=== PATIENT | male | born 1965 | race Two or more races ===

== ENCOUNTER 2020-12-15 22:40 | Emergency (ER) | payer OTHER ==
[~2020-12-15] VITALS: Ht 180.3 cm; Wt 99.8 kg
[2020-12-15 22:40] VITALS: BP 128/83
[2020-12-16 01:28] LABS: Basophils # (auto) 0.1 10 ^3/uL (0-0.2); Basophils % (auto) 1.9 % (0.0-2.0); Eosinophils # (auto) 0.2 10 ^3/uL (0-0.8); Eosinophils % (auto) 2.5 % (0.0-7.0); Hematocrit 45.4 % (41.0-53.0); Hemoglobin 15.9 g/dL (13.5-17.5); Lymphocytes # (auto) 1.7 10 ^3/uL (0.4-5.4); Mean Corpuscular Hemoglobin 31.3 pg (28.0-32.0); Mean Corpuscular Volume 89.7 fL (80.0-100.0); Monocytes # (auto) 0.3 10 ^3/uL (0-1.3); Monocytes % (auto) 4.6 % (0.0-12.0); Neutrophils # (auto) 5.1 10 ^3/uL (1.6-8.6); Nucleated Red Blood Cells % 0.1 %; Platelet Count (auto) 152 10^3/uL (140-450); Red Blood Cells 5.07 10^6/uL (4.5-5.90); Red Cell Distribution Width 13.1 % (11.8-14.3); White Blood Cell 7.5 10^3/uL (4.4-10.8)
[2020-12-16 01:51] LABS: Albumin 3.9 g/dL (3.4-5.0); Anion Gap 9 (5-15); BUN/Creatinine Ratio 19.7; Blood Urea Nitrogen 13 mg/dL (7-18); Calcium 8.1 mg/dL (8.5-10.1); Carbon Dioxide 23 mmol/L (21-32); Chloride 109 mmol/L (98-107); GFR African American 161 mL/min; GFR Non-African American 133 mL/min; Glucose 134 mg/dL (74-106); Magnesium 2.3 mg/dL (1.6-2.6); Potassium 3.8 mmol/L (3.5-5.1); Sodium 141 mmol/L (136-145)
[2020-12-16 02:00] LABS: Alanine Aminotransferase 37 U/L (16-61); Alkaline Phosphatase 82 U/L (45-117); Aspartate Aminotransferase 19 U/L (15-37); Bilirubin, Total 0.6 mg/dL (0.2-1.0); Phosphorus 3.2 mg/dL (2.5-4.90); Total Protein 7.1 g/dL (6.4-8.2)
[2020-12-16 02:44] LABS: Urine WBC None Seen /hpf (0 - 3)
[2020-12-16] MEDS ORDERED: IOHEXOL 300 MG/ML 100ML BOTTLE IJ ONE (02:50)
[2020-12-16 03:24] LABS: Urine Bacteria NONE SEEN /hpf (None Seen); Urine Blood Negative /uL (Negative); Urine Hyaline Cast FEW /lpf (0 - 2); Urine Specific Gravity 1.004 (1.001-1.035)
[2020-12-16 04:40] LABS: Urine Bacteria NONE SEEN /hpf (None Seen); Urine Blood Negative /uL (Negative); Urine WBC <1 /hpf (0 - 3)
[2020-12-16 04:47] LABS: Urine Specific Gravity > 1.050 (1.001-1.035)
== END 2020-12-16 06:01 | disposition home or self-care (01) ==
LOC: EDBD 22:40 → ER 22:40
DX: N20.0 Calculus of kidney (principal); F17.210 Nicotine dependence, cigarettes, uncomplicated
CPT/HCPCS: 36415; 71045; 74177; 80053; 81001; 83605; 83690; 83735; 83880; 84100; 84484; 85025; 93005; 99285; Q9967

== ENCOUNTER 2024-09-23 10:24 | Inpatient (IN) | payer MEDICAID, OTHER ==
[~2024-09-23] VITALS: Ht 180.3 cm; Wt 100.1 kg
[2024-09-23 10:56] LABS: Urine Bacteria None Seen /hpf (None Seen); Urine WBC None Seen /hpf (0 - 3)
[2024-09-23 11:15] LABS: Basophils # (auto) 0.1 10 ^3/uL (0-0.2); Basophils % (auto) 0.5 % (0.0-2.0); Eosinophils # (auto) 0.2 10 ^3/uL (0-0.8); Eosinophils % (auto) 1.6 % (0.0-7.0); Hematocrit 44.7 % (41.0-53.0); Hemoglobin 15.7 g/dL (13.5-17.5); Lymphocytes # (auto) 1.6 10 ^3/uL (0.4-5.4); Lymphocytes % (auto) 14.7 % (10.0-50.0); Mean Corpuscular Hemoglobin 31.1 pg (28.0-32.0); Mean Corpuscular Hgb Conc. 35.1 g/dL (32.0-36.0); Mean Corpuscular Volume 88.6 fL (80.0-100.0); Monocytes # (auto) 0.9 10 ^3/uL (0-1.3); Monocytes % (auto) 8.3 % (0.0-12.0); Neutrophils # (auto) 8.4 10 ^3/uL (1.6-8.6); Neutrophils % (auto) 74.9 % (37.0-80.0); Nucleated Red Blood Cells % 0.2 %; Platelet Count (auto) 150 10^3/uL (140-450); Red Blood Cells 5.05 10^6/uL (4.5-5.90); Red Cell Distribution Width 13.7 % (11.8-14.3); White Blood Cell 11.2 10^3/uL (4.4-10.8)
[2024-09-23 11:37] LABS: Alanine Aminotransferase 19 U/L (7-40); Albumin 4.4 g/dL (3.2-4.8); Alkaline Phosphatase 96 U/L (46-116); Anion Gap 6 (5-15); Aspartate Aminotransferase 12 U/L (13-40); BUN/Creatinine Ratio 8.3 (10.0-20.0); Bilirubin, Total 1.6 mg/dL (0.2-1.0); Blood Urea Nitrogen 9 mg/dL (9-23); Calcium 9.7 mg/dL (8.7-10.4); Carbon Dioxide 27 mmol/L (20-31); Chloride 107 mmol/L (98-107); Glucose 93 mg/dL (74-106); Potassium 4.6 mmol/L (3.5-5.1); Sodium 140 mmol/L (136-145); Total Protein 6.9 g/dL (5.7-8.2)
[2024-09-23 11:50] LABS: Urine Blood 2+ /uL (Negative); Urine Clarity Clear (Clear); Urine Color Colorless (Yellow); Urine Protein, UAD Negative (Negative); Urine Specific Gravity 1.004 (1.001-1.035); Urine Urobilinogen Normal (Negative); Urine pH 6.5 (5.0-9.0)
[2024-09-23] MEDS: IOHEXOL 300 MG/ML 100ML BOTTLE IJ ONE (13:00)
[2024-09-23] MEDS ORDERED: MANNITOL FTV 25% 12.5 GM/50 ML 50 ML IV ONE (14:15)
[2024-09-23] MEDS ORDERED: KETOROLAC TROMETH 30 MG/ML 1ML VIAL IV PRN (14:45)
[2024-09-23] MEDS ORDERED: HYDROcodone-ACET 5/325MG TAB PO PRN (14:45)
[2024-09-23] MEDS ORDERED: HYDR12.55 PO (14:45)
[2024-09-23] MEDS ORDERED: TAMS0.4C39 PO (14:45)
[2024-09-23] MEDS ORDERED: ONDANSETRON HCL 4 MG/2 ML VIAL IV PRN (14:45)
[2024-09-23 16:52] VITALS: BP 124/72; PULSE 79; RESP 18; TEMP 98.4; O2SAT 98
[2024-09-23 16:53] VITALS: PULSE 79; RESP 16; O2SAT 98
[2024-09-23] MEDS: HYDROcodone-ACET 5/325MG TAB PO ONE (17:07)
[2024-09-23] MEDS: SODIUM CHLORIDE 0.9% 2,000 ML IV ONE (17:07)
[2024-09-23] MEDS: TAMSULOSIN HYDROCHLORIDE 0.4 MG CAP PO ONE (17:07)
[2024-09-23 19:25] VITALS: RESP 16; O2SAT 98
[2024-09-23] MEDS: MANNITOL FTV 25% 12.5 GM/50 ML 50 ML IV ONE (21:40)
[2024-09-23 23:50] VITALS: BP 128/74; PULSE 74; RESP 19; TEMP 97.8; O2SAT 97
[2024-09-23 23:55] VITALS: BP 128/74; PULSE 74; RESP 18; TEMP 97.8; O2SAT 97
[2024-09-24] VITALS (7 sets, daily range): BP systolic 112–142; BP diastolic 69–79; PULSE 56–97; RESP 15–20; TEMP 97.5–98.3; O2SAT 70–98
[2024-09-24 06:48] LABS: Basophils # (auto) 0.1 10 ^3/uL (0-0.2); Basophils % (auto) 0.8 % (0.0-2.0); Eosinophils # (auto) 0.2 10 ^3/uL (0-0.8); Eosinophils % (auto) 2.9 % (0.0-7.0); Hematocrit 40.2 % (41.0-53.0); Hemoglobin 14.3 g/dL (13.5-17.5); Lymphocytes # (auto) 1.6 10 ^3/uL (0.4-5.4); Lymphocytes % (auto) 22.8 % (10.0-50.0); Mean Corpuscular Hemoglobin 31.3 pg (28.0-32.0); Mean Corpuscular Hgb Conc. 35.5 g/dL (32.0-36.0); Mean Corpuscular Volume 88.1 fL (80.0-100.0); Monocytes # (auto) 0.5 10 ^3/uL (0-1.3); Monocytes % (auto) 7.2 % (0.0-12.0); Neutrophils # (auto) 4.7 10 ^3/uL (1.6-8.6); Neutrophils % (auto) 66.3 % (37.0-80.0); Platelet Count (auto) 140 10^3/uL (140-450); Red Blood Cells 4.56 10^6/uL (4.5-5.90); Red Cell Distribution Width 13.4 % (11.8-14.3); White Blood Cell 7.1 10^3/uL (4.4-10.8)
[2024-09-24 07:07] LABS: Anion Gap 6 (5-15); Carbon Dioxide 26 mmol/L (20-31); Chloride 111 mmol/L (98-107); Potassium 4.2 mmol/L (3.5-5.1); Sodium 143 mmol/L (136-145)
[2024-09-24 07:08] LABS: Calcium 9.2 mg/dL (8.7-10.4)
[2024-09-24 07:13] LABS: BUN/Creatinine Ratio 8.9 (10.0-20.0); Blood Urea Nitrogen 8 mg/dL (9-23); Glucose 106 mg/dL (74-106)
[2024-09-24] MEDS: TAMSULOSIN HYDROCHLORIDE 0.4 MG CAP PO SCH (10:49)
[2024-09-24] MEDS: hydroCHLOROthiazide 25 MG TAB PO SCH (10:49)
[2024-09-24] MEDS: MANNITOL FTV 25% 12.5 GM/50 ML 50 ML IV ONE (16:26)
[2024-09-25 01:00] VITALS: BP 121/76; PULSE 67; RESP 17; TEMP 98.5; O2SAT 95
[2024-09-25 05:00] VITALS: BP 144/75; PULSE 77; RESP 19; TEMP 97.4; O2SAT 96
[2024-09-25 08:28] VITALS: RESP 18; O2SAT 98
[2024-09-25 09:00] VITALS: BP 133/75; PULSE 70; RESP 18; TEMP 98.2; O2SAT 97
[2024-09-25] MEDS ORDERED: IBU600T PO (11:08)
[2024-09-25] MEDS ORDERED: TAMS0.4C39 PO (11:08)
[2024-09-25 12:10] VITALS: BP 133/75; TEMP 36.8
[2024-09-25 13:00] VITALS: BP 111/61; PULSE 88; RESP 18; TEMP 97.4; O2SAT 93
== END 2024-09-25 12:30 | disposition home or self-care (01) | DRG 465 ==
LOC: ER 10:24 → OVERFLOW 14:41 → CENTRAL 23:50
PROVIDERS: ADMIT Registered Nurse General Practice; ATTEND Student in an Organized Health Care Education/Training Program
DX: N20.1 Calculus of ureter (principal); F17.210 Nicotine dependence, cigarettes, uncomplicated; N21.1 Calculus in urethra; N20.0 Calculus of kidney; I10 Essential (primary) hypertension; K59.00 Constipation, unspecified; R13.10 Dysphagia, unspecified; Z85.038 Personal history of other malignant neoplasm of large intestine; Z79.899 Other long term (current) drug therapy
CPT/HCPCS: 36415; 74018; 74177; 76775; 80048; 80053; 81001; 85025; 96365; G0378

== ENCOUNTER 2024-10-20 09:31 | Inpatient (IN) | payer MEDICAID ==
[~2024-10-20] VITALS: Ht 180.3 cm; Wt 98.3 kg
[~2024-10-20 09:31] MED LIST: HYDR12.55 PO; IBU600T PO; TAMS0.4C39 PO
[2024-10-20] MEDS ORDERED: ONDANSETRON HCL 4 MG/2 ML VIAL IV PRN ×2 (10:30→13:15)
[2024-10-20] MEDS: SODIUM CHLORIDE 0.9% 500 ML IV ONE (10:30)
[2024-10-20 10:39] LABS: Urine Bacteria None Seen /hpf (None Seen)
--- NOTE | 2024-10-20 10:39 | ED.PDOC ---
General HPI Comments 59-year-old male patient with past medical history of nephrolithiasis, hypertension presented with chief complaint of nausea, vomiting, diarrhea. He was recently here in the hospital one month ago and was diagnosed with nephrolithiasis, was given IV fluids and discharged with tamsulosin. During this visit, patient mentioned that he started having vomiting at 2100 hours in the morning, had three episodes in the night, which did not contain any blood, yellowish in color. He mentioned complaint of associated lower abdominal pain that started after having vomiting and associated diarrhea, 3-4 episodes in the night, nonbloody, yellowish in color. He also complaint of associated mild 1/10 chest pain which is bilateral, pressure-like, increased with deep inspiration. He mentioned improvement in his symptoms of vomiting, but still has nausea and diarrhea. Currently he is feeling weak and has mild headache. He denied any complaints of palpitations, shortness of breath, pedal edema, orthopnea, cough. Past medical history Nephrolithiasis, hypertension Past surgical history Colon cancer surgery done 1 and 1/2 years ago Family history Gallstones in mother Medication history Tamsulosin Ibuprofen Stopped hydrochlorothiazide recently Allergic history No known allergies Social history Quit smoking, alcohol three years ago, was taking occasionally before that Denied marijuana or any other drugs ROS As described above in the HPI Examination General Appearance: Alert, Oriented X3, Cooperative, No acute distress Respiratory: Clear to auscultation, Normal air movement Cardiovascular: Regular rate, Normal S1, Normal S2 Abdominal: Soft, no guarding, no rigidity, mild lower abdominal tenderness Extremities: No cyanosis, No edema, Normal pulses, No tenderness/swelling Skin: No rashes, No breakdown Neuro: Normal speech and tone Chief Complaint: Abdominal Pain Time Seen by MD: 10:11 Primary Care Provider: TERRY Allergies: Coded Allergies: NO KNOWN ALLERGIES (Unverified , 12/16/20) Home Meds Active Scripts Ibuprofen Micronized (MOTRIN TABLET) 600 Mg Tb, 600 MG PO TID PRN, #30 TAB *Black box warning-NSAIDS can increase risk of OH & hypertension, GI irritation, ulceration, bleed, perferation. Do not use post cardiac surgery. Use short duration/lowest effective dose. Prov:MECHE WOODARD MD 09/25/24 Tamsulosin Hcl (Tamsulosin Hcl) 0.4 Mg Cap, 0.4 MG PO DAILY for 30 Days, #30 CAP 1 Refill Prov:MECHE WOODARD MD 09/25/24 Reported Medications Hydrochlorothiazide (Hydrochlorothiazide) 12.5 Mg Tab, 12.5 MG PO DAILY 09/23/24 Mode of Arrival: Ambulatory Differential Diagnosis Kidney stone (Female): N/A Kidney stone (Male): Bowel obstruction, Cholelithiasis, Hepatitis, Cholangitis, Pancreatitis, Pyelonephritis, Urinary obstruction, Urolithiasis, Urinary tract infection X-Ray, Labs, Meds, VS Vital Signs Date Time Temp Pulse Resp B/P (MAP) Pulse Ox O2 Delivery O2 Flow Rate FiO2 10/20/24 09:51 99.0 98 18 123/74 (90) 96 Lab Test 10/20/24 11:56 10/20/24 11:01 10/20/24 09:48 Range/Units Troponin I High Sensitivity < 3 L < 3 L </=54 ng/L White Blood Count 10.9 H 4.4-10.8 10^3/uL Red Blood Count 5.38 4.5-5.90 10^6/uL Hemoglobin 16.8 13.5-17.5 g/dL Hematocrit 47.7 41.0-53.0 % Mean Corpuscular Volume 88.7 80.0-100.0 fL Mean Corpuscular Hemoglobin 31.3 28.0-32.0 pg Mean Corpuscular Hemoglobin Concent 35.3 32.0-36.0 g/dL Red Cell Distribution Width 13.4 11.8-14.3 % Platelet Count 141 140-450 10^3/uL Mean Platelet Volume 7.2 6.9-10.8 fL Neutrophils (%) (Auto) 88.3 H 37.0-80.0 % Lymphocytes (%) (Auto) 4.9 L 10.0-50.0 % Monocytes (%) (Auto) 6.4 0.0-12.0 % Eosinophils (%) (Auto) 0.1 0.0-7.0 % Basophils (%) (Auto) 0.3 0.0-2.0 % Neutrophils # (Auto) 9.6 H 1.6-8.6 10 ^3/uL Lymphocytes # (Auto) 0.5 0.4-5.4 10 ^3/uL Monocytes # (Auto) 0.7 0-1.3 10 ^3/uL Eosinophils # (Auto) 0 0-0.8 10 ^3/uL Basophils # (Auto) 0 0-0.2 10 ^3/uL Nucleated Red Blood Cells 0.1 % Sodium Level 143 136-145 mmol/L Potassium Level 4.5 3.5-5.1 mmol/L Chloride Level 107 98-107 mmol/L Carbon Dioxide Level 28 20-31 mmol/L Anion Gap 8 5-15 Blood Urea Nitrogen 13 9-23 mg/dL Creatinine 0.93 0.700-1.30 mg/dL Glomerular Filtration Rate Calc 94 >90 mL/min BUN/Creatinine Ratio 14.0 10.0-20.0 Serum Glucose 114 H 74-106 mg/dL Calcium Level 9.8 8.7-10.4 mg/dL Total Bilirubin 2.0 H 0.2-1.0 mg/dL Aspartate Amino Transferase (AST) 24 13-40 U/L Alanine Aminotransferase (ALT) 29 7-40 U/L Alkaline Phosphatase 94 46-116 U/L B-Type Natriuretic Peptide 10.89 0-100 pg/mL Total Protein 7.1 5.7-8.2 g/dL Albumin 4.8 3.2-4.8 g/dL Lipase 45 12-53 U/L Urine Color Yellow Yellow Urine Clarity Clear Clear Urine pH 5.5 5.0-9.0 Urine Specific [place] 1.019 1.001-1.035 Urine Protein Negative Negative Urine Ketones Negative Negative Urine Blood Trace H Negative /uL Urine Nitrite Negative Negative Urine Bilirubin Negative Negative Urine Urobilinogen Normal Negative mg/dL Urine Leukocyte Esterase Negative Negative /uL Urine RBC 8 0 - 3 /hpf Urine WBC 1 0 - 3 /hpf Urine Squamous Epithelial Cells None seen <5 /hpf Urine Bacteria None seen None Seen /hpf Urine Mucus Few None Seen Urine Glucose Normal Normal mg/dL Time of 1ST Reevaluation: 11:53 Reevaluation 1ST: Unchanged Patient Education/Counseling: Diagnosis, Treatment Family Education/Counseling: No Family Present Comments Patient presented with the HPI, nausea, vomiting, diarrhea, workup was initiated. CT abdomen pelvis without contrast revealed 5 mm calculus in the distal left ureter. There is left hydroureter mild left renal hydronephrosis. Patient was given IV fluids, IV ondansetron Patient has been observed in the ED adequate length of time to insure improvement/stability. patient was admitted to the medicine team for further evaluation and treatment of their presentation. Departure 1 Departure Time of Disposition: 11:53 Impression: Primary Impression: Left ureteral stone Additional Impressions: Hydroureter, left Hydronephrosis, left Disposition: 09 ADMITTED INPATIENT Admit to: Med Surg Condition: Guarded ROYAL PEREZ RESIDENT Oct 20, 2024 10:39
--- NOTE | 2024-10-20 10:56 | DVH ---
CHEST RADIOGRAPH Indication: chest pain Technique: Single frontal view of the chest was obtained Comparison: CHEST XRAY 1 VIEW on DOS: 12/15/20 FINDINGS: Lines and Tubes: None Lungs: No focal consolidation. Pleura: No effusion. No pneumothorax. Cardiomediastinal contours: Unremarkable Bones: No acute osseous abnormality. IMPRESSION: No acute cardiopulmonary disease.
[2024-10-20 11:03] LABS: Urine Blood TRACE /uL (Negative); Urine Clarity Clear (Clear); Urine Color Yellow (Yellow); Urine Mucus FEW (None Seen); Urine Protein, UAD Negative (Negative); Urine Specific Gravity 1.019 (1.001-1.035); Urine Urobilinogen Normal (Negative); Urine WBC 1 /hpf (0 - 3); Urine pH 5.5 (5.0-9.0)
--- NOTE | 2024-10-20 11:11 | DVH ---
CT ABDOMEN AND PELVIS WITHOUT CONTRAST CLINICAL HISTORY: Lower abd pain, history of renal stones TECHNIQUE: Multiple contiguous axial images of the abdomen and pelvis without intravenous contrast. The images were reformatted degenerate coronal and sagittal reconstructions. All CT scans at this medical facility are performed using dose modulation techniques as appropriate t o a performed exam including the following:Automated exposure control was utilized; adjustment of the MA and/or KV according to patient size; and use of iterative reconstruction technique. Radiation Dose Information: CT Dose: CTDI volume is 15 mGy. Dose-length product is 891 mGy*cm Comparison: CT CT AB PEL WITH IV CON ONLY on DOS: 09/23/24 FINDINGS: Evaluation of the abdomen and pelvis is limited without intravenous contrast. There is a 5 mm calculus in the distal left ureter. There is left hydroureter and mild left renal hy dronephrosis. There is no evidence of right renal calculus or hydronephrosis. There is no evidence o f a right ureteral calculus or hydroureter. There is a 2.1 cm calcified gallstone within the gallbladder. The liver, pancreas, adrenal glands, and spleen appear within normal limits. There is no gross evidence of abdominal lymphadenopathy. There is no free fluid or free air. There are postsurgical changes related to partial right hemicolectomy with anastomotic sutures in the transverse colon. The small and large bowel loops demonstrate normal caliber. There are scattered d iverticula in the colon without evidence of acute diverticulitis. The abdominal aorta and IVC appear within normal limits. There is mild prostatomegaly. The bladder appears within normal limits the degree of distention. Ther e is no evidence of a pelvic mass or lymphadenopathy. There is no free fluid collection. There is a s mall fat containing right inguinal hernia. Lung bases are clear. There is no acute osseous abnormality. IMPRESSION: 1. 5 mm calculus in the distal left ureter. There is left hydroureter mild left renal hydronephrosis . 2. Cholelithiasis. 3. Partial right hemicolectomy with anastomotic sutures in the transverse colon. The small and large bowel loops demonstrate normal caliber. 4. Mild prostatomegaly. HS:Y
[2024-10-20 11:27] LABS: Basophils # (auto) 0 10 ^3/uL (0-0.2); Basophils % (auto) 0.3 % (0.0-2.0); Eosinophils # (auto) 0 10 ^3/uL (0-0.8); Eosinophils % (auto) 0.1 % (0.0-7.0); Hematocrit 47.7 % (41.0-53.0); Hemoglobin 16.8 g/dL (13.5-17.5); Lymphocytes # (auto) 0.5 10 ^3/uL (0.4-5.4); Lymphocytes % (auto) 4.9 % (10.0-50.0); Mean Corpuscular Hemoglobin 31.3 pg (28.0-32.0); Mean Corpuscular Hgb Conc. 35.3 g/dL (32.0-36.0); Mean Corpuscular Volume 88.7 fL (80.0-100.0); Monocytes # (auto) 0.7 10 ^3/uL (0-1.3); Monocytes % (auto) 6.4 % (0.0-12.0); Neutrophils # (auto) 9.6 10 ^3/uL (1.6-8.6); Neutrophils % (auto) 88.3 % (37.0-80.0); Nucleated Red Blood Cells % 0.1 %; Platelet Count (auto) 141 10^3/uL (140-450); Red Blood Cells 5.38 10^6/uL (4.5-5.90); Red Cell Distribution Width 13.4 % (11.8-14.3); White Blood Cell 10.9 10^3/uL (4.4-10.8)
[2024-10-20 11:28] LABS: Alanine Aminotransferase 29 U/L (7-40); Albumin 4.8 g/dL (3.2-4.8); Alkaline Phosphatase 94 U/L (46-116); Anion Gap 8 (5-15); Aspartate Aminotransferase 24 U/L (13-40); Blood Urea Nitrogen 13 mg/dL (9-23); Calcium 9.8 mg/dL (8.7-10.4); Carbon Dioxide 28 mmol/L (20-31); Chloride 107 mmol/L (98-107); Glucose 114 mg/dL (74-106); Potassium 4.5 mmol/L (3.5-5.1); Sodium 143 mmol/L (136-145); Total Protein 7.1 g/dL (5.7-8.2)
[2024-10-20] MEDS: SODIUM CHLORIDE 0.9% 1,000 ML IV ONE (12:00)
[2024-10-20] MEDS: cefTRIAXone 1GM/50ML D5W 50 ML IV SCH (13:00)
[2024-10-20] MEDS ORDERED: DEXTROSE (50%) 50ML SYRG IV PRN (13:00)
[2024-10-20] MEDS ORDERED: MAALOX PLUS or MAALOX 30 ML PO PRN (13:15)
[2024-10-20] MEDS ORDERED: HYDROcodone-ACET 5/325MG TAB PO PRN (13:15)
[2024-10-20] MEDS ORDERED: TEMAZEPAM 15 MG CAP PO PRN (13:15)
[2024-10-20] MEDS ORDERED: MORPHINE SULFATE INJ 2 MG/ml SYRG IV PRN (13:15)
[2024-10-20] MEDS ORDERED: ACETAMINOPHEN 325 MG TAB PO PRN (13:15)
[2024-10-20] MEDS ORDERED: LORazepam 0.5 MG TAB PO PRN (13:15)
[2024-10-20] MEDS ORDERED: DOCUSATE SOD 100 MG CAP PO PRN (13:15)
--- NOTE | 2024-10-20 15:00 | DVHHP2 ---
History of Present Illness Reason for Visit: abdominal pain History of Present Illness 59 yo with abdominal pain associated with nausea and vomiting patient has a history htn and kidney stones stated that he was diagnosed with kidney stones in the past and was started on medication that was hoping to help the stones past but patient started having severe abdominal pain with intractable nausea and vomiting that brought him to the ed for continued management patient was evaluated and show to have stones plan is for admission and acute management and possible intervention Cardiovascular: HTN Renal/: Benign prostatic enlarg., Hematuria Review of Systems Constitutional: No: Fever, Chills, Sweats, Weakness, Malaise, Other Eyes: No: Pain, Vision change, Conjunctivae inflammation, Eyelid inflammation, Other, Redness ENT: No: Ear pain, Ear discharge, Nose pain, Nose discharge, Nose congestion, Mouth pain, Mouth swelling, Throat pain, Throat swelling, Other Respiratory: No: Cough, Dry, Shortness of breath, SOB with excertion, Wheezing, Hemoptysis, Pleuritic Pain, Sputum, Wheezing, Other Cardiovascular: No: Chest Pain, Palpitations, Orthopnea, Paroxysmal Noc. Dyspnea, Edema, Lt Headedness, Other Gastrointestinal: No: Nausea, Vomiting, Abdominal Pain, Diarrhea, Constipation, Melena, Hematochezia, Other Genitourinary: Dysuria; No Frequency, No Incontinence; Hematuria; No Retention, No Other Musculoskeletal: No: other, neck pain, shoulder pain, arm pain, back pain, hand pain, leg pain, foot pain Skin: No: Rash, Lesions, Jaundice, Bruising, Other Neurological: No: Weakness, Numbness, Incoordination, Change in speech, Confusion, Seizures, Other Allergies: Coded Allergies: NO KNOWN ALLERGIES (Unverified , 12/16/20) Medications Current Medications Medications Dose Ordered Sig/Camilo Route Start Time Stop Time Status Last Admin Dose Admin Ondansetron HCl 4 mg ONCE PRN IV 10/20/24 10:30 Tamsulosin HCl 0.4 mg DAILY PO 10/21/24 10:00 Patient Own Medication 12.5 mg DAILY PO 10/21/24 10:00 UNV Ceftriaxone Sodium 50 ml @ 100 mls/hr DAILY IV 10/20/24 13:00 Diagnostic Test (Pha) 1 strip IQ4HR 10/20/24 16:00 Insulin Human Regular IQ4HR SC 10/20/24 16:00 Dextrose 50 ml UD PRN IV 10/20/24 13:00 Sodium Chloride 1,000 ml @ 60 mls/hr [id number] IV 10/20/24 13:15 Lorazepam 0.5 mg Q6HP PRN PO 10/20/24 13:15 Al Hydrox/Mg Hydrox/Simethicone 30 ml Q6HP PRN PO 10/20/24 13:15 Docusate Sodium 100 mg BIDPRN PRN PO 10/20/24 13:15 Acetaminophen 650 mg Q6HP PRN PO 10/20/24 13:15 Temazepam 15 mg QHSP PRN PO 10/20/24 13:15 Acetaminophen/ Hydrocodone Bitart 1 tab Q4HP PRN PO 10/20/24 13:15 Ondansetron HCl 4 mg Q4HP PRN IV 10/20/24 13:15 Morphine Sulfate 2 mg Q4HPRN PRN IV 10/20/24 13:15 Finasteride 5 mg DAILY PO 10/21/24 10:00 Hydrochlorothiazide 12.5 mg DAILY PO 10/21/24 10:00 Exam Vital Signs Vital Signs Date Time Temp Pulse Resp B/P (MAP) Pulse Ox O2 Delivery O2 Flow Rate FiO2 10/20/24 09:51 99.0 98 18 123/74 (90) 96 General Appearance: Oriented X3 HEENT: Atraumatic, PERRLA Respiratory: Clear to auscultation Cardiovascular: Regular rate, Normal S1, Normal S2 Abdominal: Normal bowel sounds, Soft Extremities: No clubbing, No cyanosis Skin: No rashes, No breakdown Neuro: Normal speech Psych/Mental Status: Mood NL Labs/Xrays Labs Test 10/20/24 11:56 10/20/24 11:01 10/20/24 09:48 Range/Units Troponin I High Sensitivity < 3 L </=54 ng/L White Blood Count 10.9 H 4.4-10.8 10^3/uL Red Blood Count 5.38 4.5-5.90 10^6/uL Hemoglobin 16.8 13.5-17.5 g/dL Hematocrit 47.7 41.0-53.0 % Mean Corpuscular Volume 88.7 80.0-100.0 fL Mean Corpuscular Hemoglobin 31.3 28.0-32.0 pg Mean Corpuscular Hemoglobin Concent 35.3 32.0-36.0 g/dL Red Cell Distribution Width 13.4 11.8-14.3 % Platelet Count 141 140-450 10^3/uL Mean Platelet Volume 7.2 6.9-10.8 fL Neutrophils (%) (Auto) 88.3 H 37.0-80.0 % Lymphocytes (%) (Auto) 4.9 L 10.0-50.0 % Monocytes (%) (Auto) 6.4 0.0-12.0 % Eosinophils (%) (Auto) 0.1 0.0-7.0 % Basophils (%) (Auto) 0.3 0.0-2.0 % Neutrophils # (Auto) 9.6 H 1.6-8.6 10 ^3/uL Lymphocytes # (Auto) 0.5 0.4-5.4 10 ^3/uL Monocytes # (Auto) 0.7 0-1.3 10 ^3/uL Eosinophils # (Auto) 0 0-0.8 10 ^3/uL Basophils # (Auto) 0 0-0.2 10 ^3/uL Nucleated Red Blood Cells 0.1 % Sodium Level 143 136-145 mmol/L Potassium Level 4.5 3.5-5.1 mmol/L Chloride Level 107 98-107 mmol/L Carbon Dioxide Level 28 20-31 mmol/L Anion Gap 8 5-15 Blood Urea Nitrogen 13 9-23 mg/dL Creatinine 0.93 0.700-1.30 mg/dL Glomerular Filtration Rate Calc 94 >90 mL/min BUN/Creatinine Ratio 14.0 10.0-20.0 Serum Glucose 114 H 74-106 mg/dL Calcium Level 9.8 8.7-10.4 mg/dL Total Bilirubin 2.0 H 0.2-1.0 mg/dL Aspartate Amino Transferase (AST) 24 13-40 U/L Alanine Aminotransferase (ALT) 29 7-40 U/L Alkaline Phosphatase 94 46-116 U/L B-Type Natriuretic Peptide 10.89 0-100 pg/mL Total Protein 7.1 5.7-8.2 g/dL Albumin 4.8 3.2-4.8 g/dL Lipase 45 12-53 U/L Urine Color Yellow Yellow Urine Clarity Clear Clear Urine pH 5.5 5.0-9.0 Urine Specific [place] 1.019 1.001-1.035 Urine Protein Negative Negative Urine Ketones Negative Negative Urine Blood Trace H Negative /uL Urine Nitrite Negative Negative Urine Bilirubin Negative Negative Urine Urobilinogen Normal Negative mg/dL Urine Leukocyte Esterase Negative Negative /uL Urine RBC 8 0 - 3 /hpf Urine WBC 1 0 - 3 /hpf Urine Squamous Epithelial Cells None seen <5 /hpf Urine Bacteria None seen None Seen /hpf Urine Mucus Few None Seen Urine Glucose Normal Normal mg/dL Assessment/Plan Assessment/Plan Admit Med Surge Abdominal Pain Nephrolithiasis Left 5mm stone with hydronephrosis Hydroureter Urology evaluation IV fluids IV Abx for coverage addison placement CT abdomen completed intractable pain PRN pain Meds PRN N/V Meds Plan discussed with: Patient My Orders Orders - TEAGAN MC MD Procedure Category Date Status Time [address] Addison JIMMY 10/20/24 In Process 12:51 Tamsulosin PHA 10/21/24 In Process Hydrochloride (Flomax) 10:00 * Gu Consult CONS 10/20/24 Transmitted 12:51 Ceftriaxone 1gm/50ml PHA 10/20/24 In Process D5w (Rocephin) 13:00 Glucose Blood PHA 10/20/24 In Process (Accu-Chek Comfort 16:00 Insulin R (Human) PHA 10/20/24 In Process (Insulin R) 16:00 Dextrose 50% Syringe PHA 10/20/24 In Process 13:00 Admit ADMIT 10/20/24 Transmitted 13:05 Code Status CODE 10/20/24 Transmitted 13:05 Vital Signs JIMMY 10/20/24 In Process 13:05 Review Orders With [facility] 10/20/24 In Process Adm. 13:05 Regular Diet DIET 10/20/24 Transmitted Lunch Sodium Chloride 0.9% PHA 10/20/24 In Process 13:15 Lorazepam Tablet PHA 10/20/24 In Process (Ativan Tablet) 13:15 Alum & Mag PHA 10/20/24 In Process Hydrox-Simethicone 13:15 Docusate Sodium PHA 10/20/24 In Process Capsule (Colace 13:15 Acetaminophen Tablet PHA 10/20/24 In Process (Tylenol Tablet) 13:15 Temazepam (Restoril) PHA 10/20/24 In Process 13:15 Notify Of Changes JIMMY 10/20/24 In Process From Base 13:05 Advance Directive JIMMY 10/20/24 In Process 13:05 Basic Metabolic Panel LAB 10/21/24 Verified 04:00 Complete Blood Count LAB 10/21/24 Verified 04:00 Patient Condition ORDERS 10/20/24 Transmitted 13:05 Allergies JIMMY 10/20/24 In Process 13:05 Hydrocodone-Acet PHA 10/20/24 In Process 5/325mg Tab (Tabor 13:15 Ondansetron Hcl PHA 10/20/24 In Process (Zofran) 13:15 Morphine Sulfate PHA 10/20/24 In Process Injection 13:15 Stat Ekg For Chest JIMMY 10/20/24 In Process Pain 13:05 Notify Md Of Changes JIMMY 10/20/24 In Process From Base 13:05 Oxygen By Nasal RT 10/20/24 Transmitted Cannula 13:05 Finasteride Tablet PHA 10/21/24 In Process (Proscar Tablet) 10:00 Hydrochlorothiazide PHA 10/21/24 In Process Tablet (Hydrochlorot 10:00 Problem List: (1) Hydronephrosis with renal and ureteral calculous obstruction (2) Nephrolithiasis (3) Hydronephrosis, left (4) Hydroureter, left (5) Left ureteral stone Date of Service: Oct 20, 2024 Billing Provider: TEAGAN MC MD Common Visit Codes: [id number] INP/OBS CARE (HIGH) TEAGAN MC MD Oct 20, 2024 15:00
[2024-10-20] MEDS: InsuLIN REG 1unit/0.01ml Soln (100units/ml) SC SCH (20:00)
[2024-10-20] MEDS: ACCU-CHEK COMFORT CURVE STRIP VI SCH (22:18)
[2024-10-21] VITALS (8 sets, daily range): BP systolic 108–129; BP diastolic 58–83; PULSE 63–90; RESP 16–20; TEMP 98.1–99.3; O2SAT 93–97
[2024-10-21] MEDS: SODIUM CHLORIDE 0.9% 1,000 ML IV SCH (05:33)
[2024-10-21 07:09] LABS: Basophils # (auto) 0 10 ^3/uL (0-0.2); Basophils % (auto) 0.5 % (0.0-2.0); Eosinophils # (auto) 0.1 10 ^3/uL (0-0.8); Hematocrit 42.1 % (41.0-53.0); Lymphocytes # (auto) 1.2 10 ^3/uL (0.4-5.4); Lymphocytes % (auto) 20.1 % (10.0-50.0); Mean Corpuscular Hemoglobin 31.5 pg (28.0-32.0); Mean Corpuscular Hgb Conc. 35.6 g/dL (32.0-36.0); Mean Corpuscular Volume 88.4 fL (80.0-100.0); Monocytes # (auto) 0.9 10 ^3/uL (0-1.3); Monocytes % (auto) 14.1 % (0.0-12.0); Neutrophils # (auto) 3.9 10 ^3/uL (1.6-8.6); Neutrophils % (auto) 64.3 % (37.0-80.0); Nucleated Red Blood Cells % 0.1 %; Platelet Count (auto) 125 10^3/uL (140-450); Red Blood Cells 4.76 10^6/uL (4.5-5.90); Red Cell Distribution Width 13.4 % (11.8-14.3); White Blood Cell 6.1 10^3/uL (4.4-10.8)
[2024-10-21 07:13] LABS: Chloride 107 mmol/L (98-107); Potassium 3.8 mmol/L (3.5-5.1); Sodium 141 mmol/L (136-145)
[2024-10-21 07:14] LABS: Anion Gap 8 (5-15); Calcium 9.2 mg/dL (8.7-10.4); Carbon Dioxide 26 mmol/L (20-31)
[2024-10-21 07:19] LABS: BUN/Creatinine Ratio 14.5 (10.0-20.0); Blood Urea Nitrogen 11 mg/dL (9-23); Glucose 101 mg/dL (74-106)
[2024-10-21] MEDS: TAMSULOSIN HYDROCHLORIDE 0.4 MG CAP PO SCH (09:24)
[2024-10-21] MEDS: FINASTERIDE 5 MG TAB PO SCH (09:24)
[2024-10-21] MEDS: hydroCHLOROthiazide 25 MG TAB PO SCH (09:25)
[2024-10-21] MEDS ORDERED: PATIENTS OWN MEDICATION (Hydrochlorothiazide 12.5 MG) PO SCH (10:00)
--- NOTE | 2024-10-21 11:33 | DVHPN2 ---
Eyes: No Pain, No Vision change, No Conjunctivae inflammation, No Eyelid inflammation, No Other, No Redness ENT: No Ear pain, No Ear discharge, No Nose pain, No Nose discharge, No Nose congestion, No Mouth pain, No Mouth swelling, No Throat pain, No Throat swelling, No Other Cardiovascular: No Chest Pain, No Palpitations, No Orthopnea, No Paroxysmal Noc. Dyspnea, No Edema, No Lt Headedness, No Other Respiratory: No Cough, No Dry, No Shortness of breath, No SOB with excertion, No Wheezing, No Hemoptysis, No Pleuritic Pain, No Sputum, No Other Gastrointestinal: No Nausea, No Vomiting, No Abdominal Pain, No Diarrhea, No Constipation, No Melena, No Hematochezia, No Other Genitourinary: Dysuria; No Frequency, No Incontinence; Hematuria; No Retention, No Other Musculoskeletal: No other, No neck pain, No shoulder pain, No arm pain, No back pain, No hand pain, No leg pain, No foot pain Skin: No Rash, No Lesions, No Jaundice, No Bruising, No Other Objective Vitals Vital Signs Date Time Temp Pulse Resp B/P (MAP) Pulse Ox O2 Delivery O2 Flow Rate FiO2 10/21/24 09:25 128/80 10/21/24 08:00 82 18 97 Room Air* 0 21 10/21/24 05:00 98.1 98.1 Intake/Output Intake and Output 10/21/24 07:00 Intake Total 850 ml Output Total 500 ml Balance 350 ml Intake Oral 850 ml Output Urine Total 500 ml Medications Current Medications Medications Dose Ordered Sig/Camilo Route Start Time Stop Time Status Last Admin Dose Admin Ondansetron HCl 4 mg ONCE PRN IV 10/20/24 10:30 Tamsulosin HCl 0.4 mg DAILY PO 10/21/24 10:00 10/21/24 09:24 0.4 MG Patient Own Medication 12.5 mg DAILY PO 10/21/24 10:00 UNV Ceftriaxone Sodium 50 ml @ 100 mls/hr DAILY IV 10/20/24 13:00 10/21/24 09:24 100 MLS/HR Insulin Human Regular IQ4HR SC 10/20/24 16:00 Sodium Chloride 1,000 ml @ 60 mls/hr [id number] IV 10/20/24 13:15 11/21/24 05:33 60 MLS/HR Lorazepam 0.5 mg Q6HP PRN PO 10/20/24 13:15 Al Hydrox/Mg Hydrox/Simethicone 30 ml Q6HP PRN PO 10/20/24 13:15 Docusate Sodium 100 mg BIDPRN PRN PO 10/20/24 13:15 Acetaminophen 650 mg Q6HP PRN PO 10/20/24 13:15 Temazepam 15 mg QHSP PRN PO 10/20/24 13:15 Acetaminophen/ Hydrocodone Bitart 1 tab Q4HP PRN PO 10/20/24 13:15 Ondansetron HCl 4 mg Q4HP PRN IV 10/20/24 13:15 Morphine Sulfate 2 mg Q4HPRN PRN IV 10/20/24 13:15 Finasteride 5 mg DAILY PO 10/21/24 10:00 10/21/24 09:24 5 MG Hydrochlorothiazide 12.5 mg DAILY PO 10/21/24 10:00 10/21/24 09:25 12.5 MG Laboratory Results Laboratory Tests 10/21/24 06:42 Chemistry Test 10/21/24 06:42 Calcium Level 9.2 mg/dL (8.7-10.4) Urinalysis Test 10/20/24 09:48 Urine Color Yellow (Yellow) Urine Clarity Clear (Clear) Urine pH 5.5 (5.0-9.0) Urine Specific [place] 1.019 (1.001-1.035) Urine Protein Negative (Negative) Urine Ketones Negative (Negative) Urine Blood Trace /uL (Negative) H Urine Nitrite Negative (Negative) Urine Bilirubin Negative (Negative) Urine Urobilinogen Normal mg/dL (Negative) Urine Leukocyte Esterase Negative /uL (Negative) Urine RBC 8 /hpf (0 - 3) Urine WBC 1 /hpf (0 - 3) Urine Squamous Epithelial Cells None seen /hpf (<5) Urine Bacteria None seen /hpf (None Seen) Urine Mucus Few (None Seen) Urine Glucose Normal mg/dL (Normal) REYES YI MD Oct 21, 2024 11:33
--- NOTE | 2024-10-21 16:32 | DVHINCON2 ---
Date of service: Oct 21, 2024 Referring Physician hospitalist Reason for Consultation uvj stone History of Present Illness History Source: Patient, Spouse/Significant Other, Family, RN Notes, MD Notes, Old Records Exam Limitations: No limitations HPI 59 yo male with left flank pain. CT shows 6 mm left UVJ stone with mild hydro. He has appt with us scheduled for 10/27/24. He is pain free and voiding without difficulty. family is at the bedside. Home Meds Active Scripts Ibuprofen Micronized (MOTRIN TABLET) 600 Mg Tb, 600 MG PO TID PRN, #30 TAB *Black box warning-NSAIDS can increase risk of [place] & hypertension, GI irritation, ulceration, bleed, perferation. Do not use post cardiac surgery. Use short duration/lowest effective dose. Prov:MECHE WOODARD MD 09/25/24 Tamsulosin Hcl (Tamsulosin Hcl) 0.4 Mg Cap, 0.4 MG PO DAILY for 30 Days, #30 CAP 1 Refill Prov:MECHE WOODARD MD 09/25/24 Reported Medications Hydrochlorothiazide (Hydrochlorothiazide) 12.5 Mg Tab, 12.5 MG PO DAILY 09/23/24 Past Medical History Renal/: UTI Patient Family History: Patient reports no known family medical history. Review of Systems Constitutional: No symptom reported Ears, Nose, & Throat: No symptom reported Eyes: No symptom reported Pulmonary/Respiratory: No symptom reported Cardiovascular: No symptom reported Gastrointestinal: No symptom reported Genitourinary: No symptom reported Musculoskeletal: No symptom reported Skin: No symptom reported Psychiatric: No symptom reported Endocrine: No symptom reported Hemotologic/Lymphatic: No symptom reported H&P Exam Vital Signs Vital Signs Date Time Temp Pulse Resp B/P (MAP) Pulse Ox O2 Delivery O2 Flow Rate FiO2 10/21/24 13:00 99.3 80 17 121/83 (96) 95 99.3 10/21/24 08:00 Room Air* 0 21 General Appeara: Well developed, Well nourished, Normal Appearance Pulmonary/Respiratory: Normal inspection, Normal breath sounds, Chest non-tender, Lungs clear Cardiovascular/Chest: Normal inspection, Regular rate, Normal Rhythm Neuro/Mental St: Alert, Oriented Appearance: Appropriate appearance, Appropriate insight Eye contact/ Speech: Cooperative, Good eye contact, Normal speech Skin Exam: Normal inspection, Normal color, Warm/dry Labs/Xrays [facility] [id number] [facility] [address] Ph: [phone] DIAGNOSTIC IMAGING Diagnostic Imaging Report : [id number] Signed PATIENT: DIXIE PENA ACCT: [id number] UNIT: [id number] : 1965 LOC: ER ROOM / BED: / AGE / SEX: 59 / M ADM STATUS: REG ER SERVICE 1024 ORDERING PHYSICIAN: ROYAL PEREZ RESIDENT PROCEDURE(s): ABPL - CT AB PEL WO CON-NO ORAL OR IV REASON: Lower abd pain, history of renal stones ORDER NUMBER(s): [id number], ACCESSION NUMBER(s): [id number] CT ABDOMEN AND PELVIS WITHOUT CONTRAST CLINICAL HISTORY: Lower abd pain, history of renal stones TECHNIQUE: Multiple contiguous axial images of the abdomen and pelvis without intravenous contrast. The images were reformatted degenerate coronal and sagittal reconstructions. All CT scans at this medical facility are performed using dose modulation techniques as appropriate to a performed exam including the following:Automated exposure control was utilized; adjustment of the MA and/or KV according to patient size; and use of iterative reconstruction technique. Radiation Dose Information: CT Dose: CTDI volume is 15 mGy. Dose-length product is 891 mGy*cm Comparison: CT CT AB PEL WITH IV CON ONLY on DOS: 09/23/24 FINDINGS: Evaluation of the abdomen and pelvis is limited without intravenous contrast. There is a 5 mm calculus in the distal left ureter. There is left hydroureter and mild left renal hydronephrosis. There is no evidence of right renal calculus or hydronephrosis. There is no evidence of a right ureteral calculus or hydroureter. There is a 2.1 cm calcified gallstone within the gallbladder. The liver, pancreas, adrenal glands, and spleen appear within normal limits. There is no gross evidence of abdominal lymphadenopathy. There is no free fluid or free air. There are postsurgical changes related to partial right hemicolectomy with anastomotic sutures in the transverse colon. The small and large bowel loops demonstrate normal caliber. There are scattered diverticula in the colon without evidence of acute diverticulitis. The abdominal aorta and IVC appear within normal limits. There is mild prostatomegaly. The bladder appears within normal limits the degree of distention. There is no evidence of a pelvic mass or lymphadenopathy. There is no free fluid collection. There is a small fat containing right inguinal hernia. Lung bases are clear. There is no acute osseous abnormality. IMPRESSION: 1. 5 mm calculus in the distal left ureter. There is left hydroureter mild left renal hydronephrosis. 2. Cholelithiasis. 3. Partial right hemicolectomy with anastomotic sutures in the transverse colon. The small and large bowel loops demonstrate normal caliber. 4. Mild prostatomegaly. HS:Y ATED BY: MARK FELDER MD DICTATED DATE/TIME: 10/20/24 110 SIGNED BY: MARK FELDER MD SIGNED DATE/TIME: 10/20/24 110 CC: Labs Test 10/21/24 06:42 10/20/24 22:16 10/20/24 11:56 10/20/24 11:01 Range/Units White Blood Count 6.1 # 4.4-10.8 10^3/uL Red Blood Count 4.76 4.5-5.90 10^6/uL Hemoglobin 15.0 13.5-17.5 g/dL Hematocrit 42.1 # 41.0-53.0 % Mean Corpuscular Volume 88.4 80.0-100.0 fL Mean Corpuscular Hemoglobin 31.5 28.0-32.0 pg Mean Corpuscular Hemoglobin Concent 35.6 32.0-36.0 g/dL Red Cell Distribution Width 13.4 11.8-14.3 % Platelet Count 125 L 140-450 10^3/uL Mean Platelet Volume 7.4 6.9-10.8 fL Neutrophils (%) (Auto) 64.3 37.0-80.0 % Lymphocytes (%) (Auto) 20.1 10.0-50.0 % Monocytes (%) (Auto) 14.1 H 0.0-12.0 % Eosinophils (%) (Auto) 1.0 0.0-7.0 % Basophils (%) (Auto) 0.5 0.0-2.0 % Neutrophils # (Auto) 3.9 1.6-8.6 10 ^3/uL Lymphocytes # (Auto) 1.2 0.4-5.4 10 ^3/uL Monocytes # (Auto) 0.9 0-1.3 10 ^3/uL Eosinophils # (Auto) 0.1 0-0.8 10 ^3/uL Basophils # (Auto) 0 0-0.2 10 ^3/uL Nucleated Red Blood Cells 0.1 % Sodium Level 141 136-145 mmol/L Potassium Level 3.8 3.5-5.1 mmol/L Chloride Level 107 98-107 mmol/L Carbon Dioxide Level 26 20-31 mmol/L Anion Gap 8 5-15 Blood Urea Nitrogen 11 9-23 mg/dL Creatinine 0.76 0.700-1.30 mg/dL Glomerular Filtration Rate Calc 103 >90 mL/min BUN/Creatinine Ratio 14.5 10.0-20.0 Serum Glucose 101 74-106 mg/dL Calcium Level 9.2 8.7-10.4 mg/dL POC Glucose 118 H 70-106 mg/dl Troponin I High Sensitivity < 3 L </=54 ng/L Total Bilirubin 2.0 H 0.2-1.0 mg/dL Aspartate Amino Transferase (AST) 24 13-40 U/L Alanine Aminotransferase (ALT) 29 7-40 U/L Alkaline Phosphatase 94 46-116 U/L B-Type Natriuretic Peptide 10.89 0-100 pg/mL Total Protein 7.1 5.7-8.2 g/dL Albumin 4.8 3.2-4.8 g/dL Lipase 45 12-53 U/L Test 10/20/24 09:48 Range/Units Urine Color Yellow Yellow Urine Clarity Clear Clear Urine pH 5.5 5.0-9.0 Urine Specific [place] 1.019 1.001-1.035 Urine Protein Negative Negative Urine Ketones Negative Negative Urine Blood Trace H Negative /uL Urine Nitrite Negative Negative Urine Bilirubin Negative Negative Urine Urobilinogen Normal Negative mg/dL Urine Leukocyte Esterase Negative Negative /uL Urine RBC 8 0 - 3 /hpf Urine WBC 1 0 - 3 /hpf Urine Squamous Epithelial Cells None seen <5 /hpf Urine Bacteria None seen None Seen /hpf Urine Mucus Few None Seen Urine Glucose Normal Normal mg/dL Assessment/Plan Problem List: (1) Nephrolithiasis (2) Hydronephrosis with renal and ureteral calculous obstruction (3) Hydronephrosis, left (4) Hydroureter, left (5) Left ureteral stone Plan expulsive measures pain control urine culture encourage fluids outpt f/u as scheduled lithotripsy if fails trial of passage Plan discussed with: Patient, Spouse, Daughter, Other CAN ELIZABETH NP Oct 21, 2024 16:32
[2024-10-22 01:00] VITALS: BP 138/61; PULSE 78; RESP 16; TEMP 97.7; O2SAT 95
[2024-10-22 05:00] VITALS: BP 110/67; PULSE 68; RESP 18; TEMP 97.4; O2SAT 95
[2024-10-22 08:10] VITALS: PULSE 75; RESP 18; O2SAT 95
[2024-10-22 09:00] VITALS: BP 117/80; PULSE 75; RESP 18; TEMP 97.7; O2SAT 95
--- NOTE | 2024-10-22 10:58 | DVHPN2 ---
Eyes: No Pain, No Vision change, No Conjunctivae inflammation, No Eyelid inflammation, No Other, No Redness ENT: No Ear pain, No Ear discharge, No Nose pain, No Nose discharge, No Nose congestion, No Mouth pain, No Mouth swelling, No Throat pain, No Throat swelling, No Other Cardiovascular: No Chest Pain, No Palpitations, No Orthopnea, No Paroxysmal Noc. Dyspnea, No Edema, No Lt Headedness, No Other Respiratory: No Cough, No Dry, No Shortness of breath, No SOB with excertion, No Wheezing, No Hemoptysis, No Pleuritic Pain, No Sputum, No Other Gastrointestinal: No Nausea, No Vomiting, No Abdominal Pain, No Diarrhea, No Constipation, No Melena, No Hematochezia, No Other Genitourinary: Dysuria; No Frequency, No Incontinence; Hematuria; No Retention, No Other Musculoskeletal: No other, No neck pain, No shoulder pain, No arm pain, No back pain, No hand pain, No leg pain, No foot pain Skin: No Rash, No Lesions, No Jaundice, No Bruising, No Other Objective Vitals Vital Signs Date Time Temp Pulse Resp B/P (MAP) Pulse Ox O2 Delivery O2 Flow Rate FiO2 10/22/24 09:00 97.7 75 18 117/80 (92) 95 97.7 10/22/24 08:10 Room Air* 0 21 Intake/Output Intake and Output 10/22/24 07:00 Intake Total 2770 ml Output Total 600 ml Balance 2170 ml Intake Oral 2020 ml IV Total 750 ml Output Urine Total 600 ml # Voids 4 # Bowel Movements 4 Medications Current Medications Medications Dose Ordered Sig/Camilo Route Start Time Stop Time Status Last Admin Dose Admin Tamsulosin HCl 0.4 mg DAILY PO 10/21/24 10:00 10/22/24 08:41 0.4 MG Patient Own Medication 12.5 mg DAILY PO 10/21/24 10:00 UNV Ceftriaxone Sodium 50 ml @ 100 mls/hr DAILY IV 10/20/24 13:00 10/22/24 08:41 100 MLS/HR Insulin Human Regular IQ4HR SC 10/20/24 16:00 Sodium Chloride 1,000 ml @ 60 mls/hr [id number] IV 10/20/24 13:15 10/21/24 05:33 60 MLS/HR Lorazepam 0.5 mg Q6HP PRN PO 10/20/24 13:15 Al Hydrox/Mg Hydrox/Simethicone 30 ml Q6HP PRN PO 10/20/24 13:15 Docusate Sodium 100 mg BIDPRN PRN PO 10/20/24 13:15 Acetaminophen 650 mg Q6HP PRN PO 10/20/24 13:15 Temazepam 15 mg QHSP PRN PO 10/20/24 13:15 Acetaminophen/ Hydrocodone Bitart 1 tab Q4HP PRN PO 10/20/24 13:15 Ondansetron HCl 4 mg Q4HP PRN IV 10/20/24 13:15 Morphine Sulfate 2 mg Q4HPRN PRN IV 10/20/24 13:15 Finasteride 5 mg DAILY PO 10/21/24 10:00 10/22/24 08:42 5 MG Hydrochlorothiazide 12.5 mg DAILY PO 10/21/24 10:00 10/22/24 08:46 12.5 MG Laboratory Results Laboratory Tests 10/21/24 06:42 Urinalysis Test 10/20/24 09:48 Urine Color Yellow (Yellow) Urine Clarity Clear (Clear) Urine pH 5.5 (5.0-9.0) Urine Specific [place] 1.019 (1.001-1.035) Urine Protein Negative (Negative) Urine Ketones Negative (Negative) Urine Blood Trace /uL (Negative) H Urine Nitrite Negative (Negative) Urine Bilirubin Negative (Negative) Urine Urobilinogen Normal mg/dL (Negative) Urine Leukocyte Esterase Negative /uL (Negative) Urine RBC 8 /hpf (0 - 3) Urine WBC 1 /hpf (0 - 3) Urine Squamous Epithelial Cells None seen /hpf (<5) Urine Bacteria None seen /hpf (None Seen) Urine Mucus Few (None Seen) Urine Glucose Normal mg/dL (Normal) REYES YI MD Oct 22, 2024 10:58
[2024-10-22] MEDS ORDERED: LEVO500T91 PO (11:50)
[2024-10-22] MEDS ORDERED: FIN5T PO (11:50)
[2024-10-22] MEDS ORDERED: TAMS0.4C39 PO (11:50)
--- NOTE | 2024-10-22 11:51 | DVHDS2 ---
Discharge Summary Date of Admission Oct 20, 2024 at 13:05 Date of Discharge: Oct 22, 2024 Labs/Diagnostic Data: Laboratory Results Test 10/22/24 04:47 10/21/24 06:42 10/20/24 11:56 10/20/24 11:01 POC Glucose 113 mg/dl (70-106) White Blood Count 6.1 10^3/uL (4.4-10.8) Red Blood Count 4.76 10^6/uL (4.5-5.90) Hemoglobin 15.0 g/dL (13.5-17.5) Hematocrit 42.1 % (41.0-53.0) Mean Corpuscular Volume 88.4 fL (80.0-100.0) Mean Corpuscular Hemoglobin 31.5 pg (28.0-32.0) Mean Corpuscular Hemoglobin Concent 35.6 g/dL (32.0-36.0) Red Cell Distribution Width 13.4 % (11.8-14.3) Platelet Count 125 10^3/uL (140-450) Mean Platelet Volume 7.4 fL (6.9-10.8) Neutrophils (%) (Auto) 64.3 % (37.0-80.0) Lymphocytes (%) (Auto) 20.1 % (10.0-50.0) Monocytes (%) (Auto) 14.1 % (0.0-12.0) Eosinophils (%) (Auto) 1.0 % (0.0-7.0) Basophils (%) (Auto) 0.5 % (0.0-2.0) Neutrophils # (Auto) 3.9 10 ^3/uL (1.6-8.6) Lymphocytes # (Auto) 1.2 10 ^3/uL (0.4-5.4) Monocytes # (Auto) 0.9 10 ^3/uL (0-1.3) Eosinophils # (Auto) 0.1 10 ^3/uL (0-0.8) Basophils # (Auto) 0 10 ^3/uL (0-0.2) Nucleated Red Blood Cells 0.1 % Sodium Level 141 mmol/L (136-145) Potassium Level 3.8 mmol/L (3.5-5.1) Chloride Level 107 mmol/L (98-107) Carbon Dioxide Level 26 mmol/L (20-31) Anion Gap 8 (5-15) Blood Urea Nitrogen 11 mg/dL (9-23) Creatinine 0.76 mg/dL (0.700-1.30) Glomerular Filtration Rate Calc 103 mL/min (>90) BUN/Creatinine Ratio 14.5 (10.0-20.0) Serum Glucose 101 mg/dL (74-106) Calcium Level 9.2 mg/dL (8.7-10.4) Troponin I High Sensitivity < 3 ng/L (</=54) Total Bilirubin 2.0 mg/dL (0.2-1.0) Aspartate Amino Transferase (AST) 24 U/L (13-40) Alanine Aminotransferase (ALT) 29 U/L (7-40) Alkaline Phosphatase 94 U/L (46-116) B-Type Natriuretic Peptide 10.89 pg/mL (0-100) Total Protein 7.1 g/dL (5.7-8.2) Albumin 4.8 g/dL (3.2-4.8) Lipase 45 U/L (12-53) Test 10/20/24 09:48 Urine Color Yellow (Yellow) Urine Clarity Clear (Clear) Urine pH 5.5 (5.0-9.0) Urine Specific [place] 1.019 (1.001-1.035) Urine Protein Negative (Negative) Urine Ketones Negative (Negative) Urine Blood Trace /uL (Negative) Urine Nitrite Negative (Negative) Urine Bilirubin Negative (Negative) Urine Urobilinogen Normal mg/dL (Negative) Urine Leukocyte Esterase Negative /uL (Negative) Urine RBC 8 /hpf (0 - 3) Urine WBC 1 /hpf (0 - 3) Urine Squamous Epithelial Cells None seen /hpf (<5) Urine Bacteria None seen /hpf (None Seen) Urine Mucus Few (None Seen) Urine Glucose Normal mg/dL (Normal) Other Laboratory Tests 10/21/24 06:42 Final Diagnosis/Problems List hydronephrosis Discharge Disposition: Home Discharge Instruct/Medications Diet: Cardiac 2g Na,low cholest Diet comment: please take more water at least 2L per day Activity: No Restrictions, As Tolerated Follow Up/Referral: pcp 1-2 weeks urologist per schedule Medications: levaquin 500mg qday Avodart 5mg daily Resume home meds Discharge Statement: "Patient was advised to return to the ER or call 911 if any headaches, dizziness, shortness of breath, chest pain, abdominal pain, bleeding, fevers, or worsening of medical condition. Patient was counseled about treatment plan, medications, possible side effects, patientverbalized understanding. All questions were answered to the best of my ability. This discharge took greater then 30 minutes in planning, reviewing documentation, counseling the patient, and discussing with other team members." ASSESSMENT ASSESSMENT Assessment hydronephrosis REYES YI MD Oct 22, 2024 11:51
[2024-10-22 12:16] VITALS: BP 117/80; PULSE 75; RESP 18; TEMP 36.5; O2SAT 95
[2024-10-22 13:15] VITALS: BP 118/67; PULSE 71; RESP 18; TEMP 97.9; O2SAT 97
== END 2024-10-22 13:05 | disposition home or self-care (01) | DRG 465 ==
LOC: ER 09:31 → OVERFLOW 13:05 → CENTRAL 23:59
PROVIDERS: ADMIT Hospitalist; ATTEND Internal Medicine
DX: N13.2 Hydronephrosis with renal and ureteral calculous obstruction (principal); I10 Essential (primary) hypertension; Z87.442 Personal history of urinary calculi; Z85.038 Personal history of other malignant neoplasm of large intestine; Z87.891 Personal history of nicotine dependence; Z79.899 Other long term (current) drug therapy
CPT/HCPCS: 36415; 71045; 74176; 80048; 80053; 81001; 82962; 83690; 83880; 84484; 85025; G0378

== ENCOUNTER 2025-11-08 10:00 | Emergency (ER) | payer MEDICAID ==
[~2025-11-08] VITALS: Ht 180.3 cm; Wt 103.0 kg
[~2025-11-08 10:00] MED LIST changes: +FIN5T PO; +LEVO500T91 PO
--- NOTE | 2025-11-08 10:15 | ECG ---
[facility] Test Date: 2025-11-08 Test Time: 10:10:11 Pat Name: DIXIE PENA Department: ED Room: Gender: M Warehouse Handler: RADHA : 1965 Requested By: EMERGENCY EMERGENCY Order Number: [id number] Reading MD: Eric Huang Measurements Intervals [place] Rate: 76 P: 58 OR: 159 QRS: 40 QRSD: 94 T: -30 QT: 372 QTc: 419 Interpretive Statements Sinus rhythm Nonspecific repol abnormality, inferior leads Electronically Signed On 11-10-2025 19:31:13 PST by Eric Huang Please click the below link to view image of tracing.
[2025-11-08 11:23] LABS: Hematocrit 45.2 % (41.0-53.0); Hemoglobin 16.2 g/dL (13.5-17.5); Mean Corpuscular Hemoglobin 32.1 pg (28.0-32.0); Mean Corpuscular Volume 89.9 fL (80.0-100.0); Nucleated Red Blood Cells % 0.2 %
[2025-11-08 11:23] LABS: Urine Protein, UAD Negative (Negative)
[2025-11-08 11:25] LABS: Chloride 105 mmol/L (98-107); Potassium 3.9 mmol/L (3.5-5.1); Sodium 142 mmol/L (136-145)
[2025-11-08 11:26] LABS: Anion Gap 9 (5-15); Calcium 9.4 mg/dL (8.7-10.4); Carbon Dioxide 28 mmol/L (20-31)
--- NOTE | 2025-11-08 11:28 | ED.PDOC ---
GI ASSESSMENT HPI Comments 60y M who presents to the ED for chief complaint of abdominal pain. Pt states he has been having abdominal pain for the past 2x days. Pt states the pain is constant, aching in nature, diffusely located, non-radiating, with no associated exacerbating or relieving factors. Pt has associated nausea but denies any other symptoms. Pt has noted history of colon cancer with surgery and now in remission. Pt denies any other symptoms. Chief Complaint: Abdominal Pain Time Seen by MD: 11:26 Primary Care Provider: TERRY Shearer Notes: Medications, Allergies Allergies: Coded Allergies: NO KNOWN ALLERGIES (Unverified , 12/16/20) Home Meds Active Scripts Levofloxacin Hemihydrate (LEVAQUIN 500 MG) 500 Mg Tab, 1 TAB PO DAILY, #7 TAB Prov:REYES YI MD 10/22/24 Finasteride (Finasteride) 5 Mg Tab, 5 MG PO DAILY, #30 TAB 5 Refills Prov:REYES YI MD 10/22/24 Tamsulosin Hcl (Tamsulosin Hcl) 0.4 Mg Cap, 0.4 MG PO DAILY for 30 Days, #30 CAP 1 Refill Prov:REYES YI MD 10/22/24 Ibuprofen Micronized (MOTRIN TABLET) 600 Mg Tb, 600 MG PO TID PRN, #30 TAB *Black box warning-NSAIDS can increase risk of VA & hypertension, GI irritation, ulceration, bleed, perferation. Do not use post cardiac surgery. Use short duration/lowest effective dose. Prov:MECHE WOODARD MD 09/25/24 Reported Medications Hydrochlorothiazide (Hydrochlorothiazide) 12.5 Mg Tab, 12.5 MG PO DAILY 09/23/24 Information Source: Patient Mode of Arrival: Ambulatory Brought in by: self Timing: Days Past Medical History PAST MEDICAL HISTORY: Denies Surgical History: Denies all surgeries Family History Family History: Reviewed,noncontributory to illness Social History Smoker: Cigarettes, Less Than 1 Pack/Day Alcohol: Heavy Drugs: Denies Drug Use Lives In: Home Constitutional: denies: chills, diaphoresis, fatigue, fever, malaise, sweats, weakness, others EENTM: denies: blurred vision, double vision, ear bleeding, ear discharge, ear drainage, ear pain, ear ringing, eye pain, eye redness, hearing loss, mouth pain, mouth swelling, nasal discharge, nose bleeding, nose congestion, nose pain, photophobia, tearing, throat pain, throat swelling, voice changes, others Respiratory: denies: cough, hemoptysis, orthopnea, SOB at rest, shortness of breath, SOB with excertion, stridor, wheezing, others Cardiovascular: denies: chest pain, dizzy spells, diaphoresis, Dyspnea on exertion, edema, irregular heart beat, left arm pain, lightheadedness, palpitations, PND, syncope, others Gastrointestinal: reports: abdominal pain, nausea; denies: abdomen distended, blood streaked bowels, constipated, diarrhea, dysphagia, difficulty swallowing, hematemesis, melena, poor appetite, poor fluid intake, rectal bleeding, rectal pain, vomiting, others Genitourinary: denies: burning, dysuria, flank pain, frequency, hematuria, incontinence, penile discharge, penile sore, pain, testicle pain, testicle swelling, urgency, others Neurological: denies: dizziness, fainting, headache, left sided numbness, left sided weakness, numbness, paresthesia, pre-existing deficit, right sided numbness, right sided weakness, seizure, speech problems, tingling, tremors, weakness, others Musculoskeletal: denies: back pain, gout, joint pain, joint swelling, muscle pain, muscle stiffness, neck pain, others Integumetry: denies: bruises, change in color, change in hair/nails, dryness, laceration, lesions, lumps, rash, wounds, others Allergic/Immunocompromised: denies: Difficulty Healing, Frequent Infections, Hives, Itching, others Hematologic/Lymphatic: denies: anemia, blood clots, easy bleeding, easy bruising, swollen glands, others Endocrine: denies: excessive hunger, excessive sweating, excessive thirst, excessive urination, flushing, intolerance to cold, intolerance to heat, unexplained weight gain, unexplained weight loss, others Psychiatric: denies: anxiety, bipolar disorder, depression, hopeless, panic disorder, schizophrenia, sleepless, suicidal, others All Other Systems: Reviewed and Negative Physical Exam General Appearance: No Apparent Distress, Normal HEENT: Normal ENT Inspection, Pharynx Normal, TMs Normal Neck: Full Range of Motion, Non-Tender, Normal, Normal Inspection Respiratory: Chest Non-Tender, Lungs Clear, No Accessory Muscle Use, No Respiratory Distress, Normal Breath Sounds Cardiovascular: No Edema, No JVD, No Murmur, No Gallop, Normal Peripheral Pulses, Regular Rate/Rhythm Breast Exam: Deferred Gastrointestinal: No Organomegaly, Non Tender, No Pulsatile Mass, Normal Bowel Sounds, Soft Genitalia: Deferred Pelvic: Deferred Rectal: Deferred Extremities: No calf tenderness, Normal capillary refill, Normal inspection, Normal range of motion, Non-tender, No pedal edema Musculoskeletal : Apperance: Normal Neurologic: Alert, manufacturing cost estimator II-XII nml as Tested, No Motor Deficits, Normal Affect, Normal Mood, No Sensory Deficits Cerebellar Function: Normal Reflexes: Normal Skin: Dry, Normal Color, Warm Lymphatic: No Adenopathy EKG EKG : Pulse Rate (adult): 76 Cardiac Rhythm: NSR Comments Inferior T-wave inversions, no STEMI. Was a procedure done? Was a procedure done?: No GI differential Dx Differential Diagnosis: Gastritis/PUD, Gastroenteritis, GI hemorrhage, Hernia, Pancreatitis, Trauma intraabdominal, Electrolyte Imbalance, Food Poisoning, Bacterial, Viral X-Ray, Labs, Meds, VS Vital Signs Date Time Temp Pulse Resp B/P (MAP) Pulse Ox O2 Delivery O2 Flow Rate FiO2 11/08/25 11:33 98.0 74 16 152/95 (114) 98 98.0 11/08/25 11:33 74 16 98 Room Air 11/08/25 10:10 76 11/08/25 10:02 98.2 84 20 143/76 96 98.2 Lab Test 11/08/25 11:11 11/08/25 11:07 Range/Units Urine Color Yellow Yellow Urine Clarity Clear Clear Urine pH 5.5 5.0-9.0 Urine Specific Flushing 1.015 1.001-1.035 Urine Protein Negative Negative Urine Ketones Negative Negative Urine Blood Negative Negative /uL Urine Nitrite Negative Negative Urine Bilirubin Negative Negative Urine Urobilinogen Normal Negative mg/dL Urine Leukocyte Esterase Negative Negative /uL Urine RBC 1 0 - 3 /hpf Urine Microscopic WBC < 1 0-3 /HPF Urine Squamous Epithelial Cells None seen <5 /hpf Urine Bacteria None seen None Seen /hpf Urine Mucus Few None Seen Urine Glucose Normal Normal mg/dL White Blood Count 6.5 4.4-10.8 10^3/uL Red Blood Count 5.03 4.5-5.90 10^6/uL Hemoglobin 16.2 13.5-17.5 g/dL Hematocrit 45.2 41.0-53.0 % Mean Corpuscular Volume 89.9 80.0-100.0 fL Mean Corpuscular Hemoglobin 32.1 H 28.0-32.0 pg Mean Corpuscular Hemoglobin Concent 35.8 32.0-36.0 g/dL Red Cell Distribution Width 13.0 11.8-14.3 % Platelet Count 147 140-450 10^3/uL Mean Platelet Volume 7.2 6.9-10.8 fL Neutrophils (%) (Auto) 63.4 37.0-80.0 % Lymphocytes (%) (Auto) 25.2 10.0-50.0 % Monocytes (%) (Auto) 7.7 0.0-12.0 % Eosinophils (%) (Auto) 2.8 0.0-7.0 % Basophils (%) (Auto) 0.9 0.0-2.0 % Neutrophils # (Auto) 4.1 1.6-8.6 10 ^3/uL Lymphocytes # (Auto) 1.6 0.4-5.4 10 ^3/uL Monocytes # (Auto) 0.5 0-1.3 10 ^3/uL Eosinophils # (Auto) 0.2 0-0.8 10 ^3/uL Basophils # (Auto) 0.1 0-0.2 10 ^3/uL Nucleated Red Blood Cells 0.2 % Sodium Level 142 136-145 mmol/L Potassium Level 3.9 3.5-5.1 mmol/L Chloride Level 105 98-107 mmol/L Carbon Dioxide Level 28 20-31 mmol/L Anion Gap 9 5-15 Blood Urea Nitrogen 8 L 9-23 mg/dL Creatinine 0.81 0.700-1.30 mg/dL Glomerular Filtration Rate Calc 100 >90 mL/min BUN/Creatinine Ratio 9.9 L 10.0-20.0 Serum Glucose 123 H 74-106 mg/dL Lactic Acid Level 1.4 0.4-2.0 mmol/L Calcium Level 9.4 8.7-10.4 mg/dL [facility] [id number] [facility] [id number] Ph: [phone] DIAGNOSTIC IMAGING Diagnostic Imaging Report : [id number] Signed PATIENT: DIXIE PENA ACCT: [id number] UNIT: [id number] : 1965 LOC: ER ROOM / BED: / AGE / SEX: 60 / M ADM STATUS: REG ER SERVICE 1059 ORDERING PHYSICIAN: MARC MULLINS MD PROCEDURE(s): ABPLIV - CT AB PEL WITH IV CON ONLY REASON: hx colon cancer s/p resection, here with diffuse abd pain ORDER NUMBER(s): [id number], ACCESSION NUMBER(s): [id number] CLINICAL INFORMATION: Abdominal pain. History of colon cancer status post prior resection. TECHNIQUE: Axial CT images of the abdomen and pelvis were obtained after the uneventful administration of 100 mL Omnipaque 300 IV contrast. Coronal and sagittal reformatted images were obtained, reviewed, and stored. All CT scans at this medical facility are performed using dose modulation techniques as appropriate to a performed exam including the following: Automated exposure control was utilized; adjustment of the MA and/or KV according to patient size; and use of iterative reconstruction technique. CTDIvol = 16.71 mGy DLP = 955.52 mGy-cm COMPARISON: CT CT AB PEL WITH IV CON ONLY on DOS: 09/23/24, CT AB PEL WITH IV CON ONLY on DOS: 12/16/20 FINDINGS: Lung bases: Lung bases are clear. Liver: Hepatic steatosis. Biliary: Calcified gallstone near the gallbladder neck measures up to 2.2 cm. Spleen: Unremarkable. Pancreas: Unremarkable. No inflammatory changes, ductal dilatation, or mass identified. Adrenal glands: Unremarkable. No mass. Kidneys: No hydronephrosis. Cyst at the midpole of the left kidney measures up to 2.3 cm. Aorta/Vascular: Scattered atherosclerotic calcification. No abdominal aortic aneurysm or dissection. Lymph Nodes: No mass or lymphadenopathy. Bowel/mesentery: No small bowel obstruction. No free air or free fluid. Postsurgical changes of right hemicolectomy with enterocolonic anastomosis at the level of the proximal transverse colon. Moderate stool in the colon. There are scattered small colonic diverticula without adjacent inflammatory changes to suggest diverticulitis. Pelvic organs: Enlarged prostate with impression on the bladder base. Bladder: Mild circumferential thickening of the bladder wall. Abdominal wall: Small fat containing indirect right inguinal hernia. Bones: No acute fracture or focal intraosseous lesion. IMPRESSION: 1. Cholelithiasis. 2. Hepatic steatosis. 3. Moderate stool in the colon. 4. Scattered small colonic diverticula without adjacent inflammatory changes to suggest diverticulitis. 5. Postsurgical changes as described above. 6. Small fat containing indirect right inguinal hernia. ATED BY: GUILLERMO GUZMAN DO DICTATED DATE/TIME: 11/08/25 1243 SIGNED BY: GUILLERMO GUZMAN DO SIGNED DATE/TIME: 11/08/25 1243 CC: X-Ray, Labs, Meds, VS Comment 60-year-old male here today with the complaints of abdominal pain with the overall reassuring workup without evidence of bowel obstruction, appendicitis, cholecystitis, pancreatitis, worsen, or any other significant acute pathology. I informed the patient of his overall reassuring workup and he was very grateful for this. Return precautions were discussed. The patient states that his pain is significantly improved and is requesting to be discharged home which I feel is appropriate. Patient was provided with a copy of all of his test results and will follow up with his primary care provider within 2-3 days for re-evaluation. Return precautions discussed. Patient discharged in stable condition and in no distress. Images Reviewed?: Images reviewed and evaluated by me Time of 1ST Reevaluation: 12:00 Reevaluation 1ST: Unchanged Time of 2ND Reevaluation: 14:43 Reevaluation 2ND: Resolved Patient Education/Counseling: Diagnosis, Treatment Family Education/Counseling: No Family Present SEPSIS Sepsis Screen Date sepsis recognized/suspect: Nov 08, 2025 Time Sepsis recognized/suspect: 1002 Recent Procedure: No On Antibiotic Therapy: No Respiratory Rate >20: No Heart Rate >90: No Temp<36 C (96.8 F) or >38.3 C: No SBP <90 or MAP <65 mmHG: No New Acute Mental Status Change: No Is the patient on CPAP, BIPAP,: No Physician Orders Ct Ab Pel With Iv Con Only (11/08/25 10:59) Vital Signs Date Time Temp Pulse Resp B/P (MAP) Pulse Ox O2 Delivery O2 Flow Rate FiO2 11/08/25 11:33 98.0 74 16 152/95 (114) 98 98.0 11/08/25 11:33 74 16 98 Room Air 11/08/25 10:10 76 11/08/25 10:02 98.2 84 20 143/76 96 98.2 Laboratory Tests Test 11/08/25 11:07 Lactic Acid Level 1.4 mmol/L (0.4-2.0) White Blood Count 6.5 10^3/uL (4.4-10.8) Departure 1 Departure Time of Disposition: 14:44 Impression: Primary Impression: Indirect inguinal hernia Additional Impressions: Constipation History of colon cancer Disposition: 01 HOME / SELF CARE / HOMELESS Condition: Stable Discharged With: Self Critical Care Note Critical Care Time?: No Stability Stability form required: No Heart Score Heart Score: Heart Score Response (Comments) Value History N/A 0 EKG N/A 0 Age N/A 0 Risk Factors N/A 0 Troponin N/A 0 Total 0 I personally scribed for MARC MULLINS [facility] ([facility] on 11/08/25 at 11:28. Electronically submitted by Maynor Barton ([facility]). I personally scribed for MARC MULLINS MD ([email or web address]) on 11/08/25 at 13:19. Electronically submitted by Maynor Barton ([facility]). MARC MULLINS MD Nov 08, 2025 11:28
[2025-11-08 11:31] LABS: BUN/Creatinine Ratio 9.9 (10.0-20.0)
[2025-11-08 11:34] LABS: Blood Urea Nitrogen 8 mg/dL (9-23); Glucose 123 mg/dL (74-106)
[2025-11-08] MEDS: IOHEXOL 300 MG/ML 100ML BOTTLE IJ ONE (12:11)
--- NOTE | 2025-11-08 12:45 | DVH ---
CLINICAL INFORMATION: Abdominal pain. History of colon cancer status post prior resection. TECHNIQUE: Axial CT images of the abdomen and pelvis were obtained after the uneventful administration of 100 mL Omnipaque 300 IV contrast. Coronal and sagittal reformatted images were obtained, reviewed, and stored. All CT scans at this medical facility are performed using dose modulation techniques as appropriate to a performed exam including the following: Automated exposure control was utilized; adjustment of the MA and/or KV according to patient size; and use of iterative reconstruction technique. CTDIvol = 16.71 mGy DLP = 955.52 mGy-cm COMPARISON: CT CT AB PEL WITH IV CON ONLY on DOS: 09/23/24, CT AB PEL WITH IV CON ONLY on DOS: 12/16/20 FINDINGS: Lung bases: Lung bases are clear. Liver: Hepatic steatosis. Biliary: Calcified gallstone near the gallbladder neck measures up to 2.2 cm. Spleen: Unremarkable. Pancreas: Unremarkable. No inflammatory changes, ductal dilatation, or mass identified. Adrenal glands: Unremarkable. No mass. Kidneys: No hydronephrosis. Cyst at the midpole of the left kidney measures up to 2.3 cm. Aorta/Vascular: Scattered atherosclerotic calcification. No abdominal aortic aneurysm or dissection. Lymph Nodes: No mass or lymphadenopathy. Bowel/mesentery: No small bowel obstruction. No free air or free fluid. Postsurgical changes of right hemicolectomy with enterocolonic anastomosis at the level of the proximal transverse colon. Moderate stool in the colon. There are scattered small colonic diverticula without adjacent inflammatory changes to suggest diverticulitis. Pelvic organs: Enlarged prostate with impression on the bladder base. Bladder: Mild circumferential thickening of the bladder wall. Abdominal wall: Small fat containing indirect right inguinal hernia. Bones: No acute fracture or focal intraosseous lesion. IMPRESSION: 1. Cholelithiasis. 2. Hepatic steatosis. 3. Moderate stool in the colon. 4. Scattered small colonic diverticula without adjacent inflammatory changes to suggest diverticulitis. 5. Postsurgical changes as described above. 6. Small fat containing indirect right inguinal hernia.
[2025-11-08 15:11] VITALS: BP 119/83; PULSE 66; RESP 17; TEMP 98; O2SAT 98
== END 2025-11-08 15:13 | disposition home or self-care (01) ==
LOC: ER 10:00
DX: K40.90 Unilateral inguinal hernia, without obstruction or gangrene, not specified as recurrent (principal); K59.00 Constipation, unspecified; F17.210 Nicotine dependence, cigarettes, uncomplicated; F10.90 Alcohol use, unspecified, uncomplicated; Z79.899 Other long term (current) drug therapy; Z85.038 Personal history of other malignant neoplasm of large intestine
CPT/HCPCS: 36415; 74177; 80048; 81001; 83605; 85025; 93005; 99285; Q9967